=== PATIENT | male | born 1940 | race Caucasian/White ===

== ENCOUNTER 2020-08-17 17:49 | Observation (INO) ==
[2020-08-17 18:50] LABS: Hematocrit 44.4 % (37.5-50.1); Hemoglobin 14.4 g/dL (12.9-16.9); Mean Corpuscular HGB Conc 32.4 g/dL (31.6-35.5); Mean Corpuscular Hemoglobin 30.4 pg (28.0-33.3); Mean Corpuscular Volume 93.9 fL (83.0-100.0); Mean Platelet Volume 10.8 fL (9.4-12.4); Platelet Count 144 K/mcL (140-400); Red Blood Count 4.73 M/mcL (4.19-5.50); Red Cell Distribution Width 13.5 % (11.5-14.5); White Blood Count 4.3 K/mcL (4.3-11.1)
[2020-08-17 19:06] LABS: INR 1.1; Prothrombin Time 12.4 Seconds (9.4-12.1)
[2020-08-17 19:09] LABS: Activated Partial Thrombo Time 28.5 Seconds (26.0-36.0); BUN/Creatinine Ratio 12 (6-26); Blood Urea Nitrogen 9 mg/dL (8-23); Carbon Dioxide 30 mEq/L (23-29); Chloride 101 mEq/L (98-107); Glucose 96 mg/dL (70-105); Osmolality,Calculated 289 (280-300); Potassium 3.4 mEq/L (3.5-5.1); Sodium 140 mEq/L (136-145); eGFR For African Americans > 60 (> 60); eGFR For Non-African Americans > 60 (> 60)
[2020-08-17 19:10] LABS: Troponin I < 0.03 ng/mL (< 0.04)
[2020-08-17] MEDS ORDERED: Aspirin 81 MG TAB.CHEW PO STA (20:09)
[2020-08-17] MEDS ORDERED: Naloxone 0.4 MG/ML INJ IVP PRN (22:12)
[2020-08-17] MEDS ORDERED: Ondansetron 4 MG/2 ML VIAL IVP PRN (22:17)
[2020-08-17] MEDS ORDERED: Perflutren Lipid Microsphere 1.3 ML in 0.9 % Sodium Chloride 8.7 ML IVP PRN (22:57)
[2020-08-17 23:14] LABS: Ethanol < 10 mg/dL (Less than 10)
[2020-08-18 01:04] LABS: Bilirubin,Urine Negative (Negative); Blood,Urine Negative (Negative); Clarity,Urine Clear (Clear); Color,Urine Colorless (Yellow); Glucose,Urine (UA) Normal (Normal); Ketones,Urine 10 mg/dL (Negative); Leukocyte Esterase,Urine Negative (Negative); Mucus,Urine Few per lpf (None-Few); Nitrite,Urine Negative (Negative); PH,Urine 7.5 pH Units (5.0-8.0); Protein,Urine Negative (Neg-Trace); RBC,Urine 0-3 per hpf (0-3); Specific Gravity,Urine 1.013 (1.010-1.025); Squamous Epithelial Cell,Urine Few per hpf (None-Few); Urobilinogen,Urine Normal (Normal); WBC,Urine 0-3 per hpf (0-3)
[2020-08-18] MEDS: Acetaminophen 325 MG TABLET PO PRN ×3 (01:09→17:02)
[2020-08-18 01:13] LABS: Amphetamine Screen,Urine Negative ng/mL (Cutoff=1000); Barbiturate Screen,Urine Positive ng/mL (Cutoff=200); Benzodiazepines Screen,Urine Negative ng/mL (Cutoff=200); Cannabinoid Screen,Urine Negative ng/mL (Cutoff = 50); Cocaine Screen,Urine Negative ng/mL (Cutoff= 300); Opiate Screen,Urine Negative ng/mL (Cutoff=300); Phencyclidine Screen,Urine Negative ng/mL (Cutoff=25)
[2020-08-18] MEDS: Melatonin 3 MG TABLET PO SCH ×2 (04:49→20:34)
[2020-08-18] MEDS: traZODone 50 MG TABLET PO SCH ×2 (04:49→20:33)
[2020-08-18] MEDS: ALPRAZolam 0.5 MG TABLET PO SCH ×2 (04:53→20:34)
[2020-08-18 07:01] LABS: INR 1.1
[2020-08-18 07:41] LABS: Alanine Aminotransferase 7 Units/L (7-52); Albumin 3.9 g/dL (3.5-5.7); Albumin/Globulin Ratio 2.1 (1.1-2.2); Alkaline Phosphatase 32 Units/L (34-104); Aspartate Amino Transferase 12 Units/L (13-39); BUN/Creatinine Ratio 13 (6-26); Bilirubin,Total 0.9 mg/dL (0.3-1.0); Blood Urea Nitrogen 10 mg/dL (8-23); Calcium 8.6 mg/dL (8.6-10.3); Carbon Dioxide 26 mEq/L (23-29); Chloride 102 mEq/L (98-107); Chol/HDL Ratio 4.8 (0-4.9); Cholesterol 206 mg/dL (< 200); Globulin 1.9 g/dL (2.4-3.5); Glucose 90 mg/dL (70-105); HDL Cholesterol 43 mg/dL (40-59); LDL Cholesterol,Calculated 140 mg/dL (< 100); Osmolality,Calculated 287 (280-300); Sodium 139 mEq/L (136-145); Total Protein 5.8 g/dL (6.4-8.9); Triglycerides 113 mg/dL (< 150); Troponin I < 0.03 ng/mL (< 0.04); eGFR For African Americans > 60 (> 60); eGFR For Non-African Americans > 60 (> 60)
[2020-08-18 07:46] LABS: Estimated Average Glucose 97 mg/dl
[2020-08-18] MEDS ORDERED: lisinopriL 10 MG TABLET PO SCH (09:00)
[2020-08-18] MEDS: Cholecalciferol (D-3) 1,000 UNIT (25MCG) TABLET PO SCH (09:23)
[2020-08-18] MEDS: Pyridoxine (B-6) 50 MG TABLET PO SCH (09:24)
[2020-08-18] MEDS: Cyanocobalamin (B-12) 1,000 MCG TABLET PO SCH (09:24)
[2020-08-18] MEDS: Primidone 50 MG TABLET PO SCH ×4 (09:24→20:33)
[2020-08-18] MEDS: Thiamine (B-1) 100 MG TABLET PO SCH (09:24)
[2020-08-18] MEDS ORDERED: lisinopriL 10 MG TABLET PO ONE (12:03)
[2020-08-18] MEDS ORDERED: Magnesium Sulfate 1 GM/102 ML PIGGYBACK IVPB ONE (12:50)
[2020-08-18] MEDS: *HR* Heparin 5,000 UNIT/ML VIAL SQ SCH (17:04)
[2020-08-19 03:30] LABS: BUN/Creatinine Ratio 16 (6-26); Blood Urea Nitrogen 14 mg/dL (8-23); Calcium 8.8 mg/dL (8.6-10.3); Carbon Dioxide 28 mEq/L (23-29); Chloride 104 mEq/L (98-107); Glucose 102 mg/dL (70-105); Magnesium 2.2 mg/dL (1.6-2.6); Osmolality,Calculated 291 (280-300); Phosphorous 3.3 mg/dL (2.7-4.5); Potassium 3.3 mEq/L (3.5-5.1); Sodium 140 mEq/L (136-145); eGFR For African Americans > 60 (> 60); eGFR For Non-African Americans > 60 (> 60)
[2020-08-19] MEDS: *HR* Heparin 5,000 UNIT/ML VIAL SQ SCH (05:38)
[2020-08-19] MEDS: Thiamine (B-1) 100 MG TABLET PO SCH (08:47)
[2020-08-19] MEDS: Cholecalciferol (D-3) 1,000 UNIT (25MCG) TABLET PO SCH (08:47)
[2020-08-19] MEDS: Cyanocobalamin (B-12) 1,000 MCG TABLET PO SCH (08:47)
[2020-08-19] MEDS: Primidone 50 MG TABLET PO SCH ×2 (08:47→13:03)
[2020-08-19] MEDS: Pyridoxine (B-6) 50 MG TABLET PO SCH (08:48)
[2020-08-19] MEDS ORDERED: Aspirin 81 MG TAB.CHEW PO SCH (09:00)
[2020-08-19] MEDS ORDERED: lisinopriL 10 MG TABLET PO SCH ×2 (09:00)
[2020-08-19] MEDS ORDERED: Lidocaine Viscous Oral Soln 15 ML SOLUTION MM PRN (11:37)
[2020-08-19] MEDS ORDERED: 0.9 % Sodium Chloride 500 ML IVC ONE (11:38)
[2020-08-19] MEDS: *HR* FentaNYL (PF) 100 MCG/2 ML VIAL IVP PRN ×3 (11:55→12:05)
[2020-08-19] MEDS: *HR* Midazolam HCl 5 MG/5 ML VIAL IVP PRN ×3 (11:55→12:05)
[2020-08-19 12:57] VITALS: BP 122/79
== END 2020-08-19 14:16 | disposition home health service (06) ==
LOC: 3BNU 17:49 → EMEROOARM 17:49 → SUATTDRO 20:31 → 3BNU 21:11
PROVIDERS: ADMIT Family Medicine; ATTEND Internal Medicine